=== PATIENT | male | born 1990 ===

== ENCOUNTER 2023-11-12 10:17 | Outpatient (AMB) | payer OTHER, SELFPAY ==
--- NOTE | 2023-11-12 10:35 | MHC.OFFWIV ---
Intake Vital Signs 11/12/23 10:36 Height 5 ft 11 in Weight 179 lb BMI 25.0 BP 120/72 Blood Pressure Location Rt brachial Position Sitting Pulse 72 Pulse Source Pulse Oximeter Pulse Oximetry (%) 98 Intake Visit Reasons: Pain in right ear Intake Note: pt is here for pain in right ear and travels to jaw for the last 3 to 4 days Patient Tobacco Use Status: Never used Tobacco Allergies No Known Allergies Allergy (Verified 11/12/23 10:39) Medication List - Last Reconciled 11/12/23 by Marco A Montes CNP No Known Home Meds Do you need a note to return to daycare/school/sports/work: Yes HPI HPI Comments History of Present Illness Details 33-year-old male presents with complaints of pain in his right ear, radiating to his right jaw. His symptoms have been ongoing for the past 2-3 days. He has difficulty opening his month and chewing d/t to pain to his jaw. He denies toothache. No headache. He states that he has not establish with a dentist since he moved from [facility] a year and a half ago. He has a PCP whom he follows routinely [facility] Social History Patient Tobacco Use Status: Never used Tobacco Review of Systems Const Details: Const Denies chills, Denies fatigue, Denies fever(s), Denies headache(s) and Denies weakness ENT Reports as per HPI Resp Denies cough, Denies dyspnea, Denies wheezing and Denies other (shortness of breath) Cardio Denies chest pain, Denies lightheadedness, Denies dyspnea and Denies other (palpitations) Neuro Denies dizziness, Denies headache(s), Denies numbness, Denies tingling and Denies weakness Psych Denies anxiety, Denies depression, Denies memory?loss Endo Denies fatigue Aller/Immun Denies wheezing Physical Exam Vital Signs: Last Vital Signs Pulse 72 11/12/23 10:36 BP 120/72 11/12/23 10:36 Pulse Ox 98 11/12/23 10:36 BMI result Body Mass Index 25.0 Const Other: Const General: well developed; No acute distress Nutritional Appearance: well nourished Orientation/consciousness: patient oriented x3 HEENT Head is normocephalic Moderate erythema at the base of the right TM; right TM with perforation; no effusion noted Left ear canal and TM is normal Right TMJ tenderness with opening of the mouth; no obvious swelling or trauma Normal dentition; no overt infection Nasal turbinates and oropharynx are pink and moist Sinuses are nontender with palpation No auricular or cervical lymphadenopathy Eyes General: appearance normal, both eyes and all related structures Pupils: Equal, round and reactive pupils present EOM: EOMs intact bilaterally Resp Effort & Inspection: normal respiratory effort Auscultation: clear to auscultation bilaterally Cardio Rate: regular rate Rhythm: regular rhythm Heart sounds: S1 normal heart sound present, S2 normal heart sound present, no gallops, no murmurs and no rubs Bruits: no abdominal aortic bruits and no carotid bruits Neuro General: patient oriented x3 and gait normal, no focal neuro deficit Cranial nerves: Yes Equal, round and reactive pupils present Psych Affect: normal affect Assessment & Plan Assessment & Plan (1) Right otitis media: Code(s): H66.91 - Otitis media, unspecified, right ear Plan: Right ear pain times 2-3 days Moderate erythema at the base of the right TM; right TM with perforation; no effusion noted Normal dentition; no overt infection Z-Chintan and naproxen ordered. Advised to take as prescribed. Instructed on the risks, benefits, and potential adverse reactions of the medications Advised to establish with a dentist for routine dental care Follow-up with PCP as planned or return with worsening or new symptoms Verbalized understanding and agreed with treatment plan (2) Right temporomandibular joint disorder, unspecified: Code(s): M26.601 - Right temporomandibular joint disorder, unspecified Plan: Reports right jaw pain for the past 2-3 days Right TMJ tenderness with opening of the mouth; no visible swelling or trauma Normal dentition; no overt infection Naproxen as prescribed Warm compresses encouraged Avoid solid foods or chewing on the right side until healed May use mouth guard at night for sleep Encouraged to establish with a dentist for routine dental care Follow-up with PCP or return with worsening or new symptoms Verbalized understanding and agreed with treatment plan Medications: New azithromycin (Zithromax Z-Chintan) For 250 mg dose pack: take 500 mg today (day 1), then 250 mg for 4 days (days 2-5) PO 6 tabs 0RF naproxen 500 mg PO BID PRN 30 tabs 0RF pain Coding Level of Care Code New Pt Level 4 (05014) Diagnoses Right otitis media H66.91 Right temporomandibular joint disorder, unspecified M26.601
[2023-11-12 10:36] VITALS: BP 120/72; PULSE 72; O2SAT 98; BMI 25.0
== END 2023-11-12 10:51 | disposition home or self-care (01) ==
LOC: HO.HMGWIW 10:17
DX: H66.91 Otitis media, unspecified, right ear (principal); M26.601 Right temporomandibular joint disorder, unspecified
CPT/HCPCS: 99204